=== PATIENT | female | born 1975 | race Caucasian/White ===

== ENCOUNTER 2024-03-23 11:47 | Emergency (ER) | payer BC, MEDICAID, SELFPAY ==
[2024-03-23 11:56] VITALS: BP 138/89; PULSE 90; RESP 16; TEMP 36.6; O2SAT 97
--- NOTE | 2024-03-23 12:05 | USCV_ITS ---
Dayton Astorga Age: 48 Gender: F : 1975 Exam Date: 03/23/2024 12:17 Ordering Phys: Ron Booth MD Technologist: Exam Location: [facility] [place] Indication: lt leg pain PROCEDURES: Venous duplex imaging was performed in only the left lower extremity. The following venous structures were evaluated: common femoral vein, profunda vein, proximal portion of the greater saphenous vein, superficial femoral vein, and the popliteal vein. In addition, the posterior tibial and peroneal trunk were evaluated. FINDINGS: Normal 2-D Doppler and augmentation and compressibility throughout the lower extremity venous structures. Additional imaging through the proximal calf veins also reveals no thrombus. Limited evaluation of the greater saphenous vein is patent with no thrombus. CONCLUSIONS No prior study for comparison. No evidence of left lower extremity DVT. Eloy Arias MD (Electronically Signed) Final Date: 23 Mar 2024 15:15 S
--- NOTE | 2024-03-23 12:05 | XRR_ITS ---
PROCEDURE INFORMATION: Exam: XR Left Tibia and Fibula Exam date and time: 03/23/2024 12:25 PM Age: 48 years old Clinical indication: Lower leg; Left; Prior surgery; Surgery date: 6+ months; Patient HX: Lle pain prev FX TECHNIQUE: Imaging protocol: Radiologic exam of the left tibia and fibula. Views: 2 views. COMPARISON: [place] [id number] 03/23/2024 12:17 PM FINDINGS: Bones/joints: Intact intramedullary montserrat traverses a distal tibial diaphyseal fracture. Intact anchoring screws are seen proximally and distally. There is also a fracture of the distal fibular diaphysis. A small amount of callus is seen at the fibular fracture site. There is overall satisfactory apposition and alignment of both the tibial and fibular fractures. Soft tissues: Normal. XR/XR tibia fibula LT 2V [id number] IMPRESSION: Postoperative findings. Distal tibial and fibular fractures as described above.
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
[2024-03-23 12:22] VITALS: BP 122/91; PULSE 89; O2SAT 98
[2024-03-23 12:26] VITALS: RESP 20; O2SAT 98
[2024-03-23] MEDS: morphine 4 mg/mL SDV 1 mL IM (12:26)
[2024-03-23 12:38] LABS: Basophils # 0.1 10^3/uL (0.0-0.1); Basophils % 0.7 %; Eosinophils # 0.2 10^3/uL (0.0-0.8); Eosinophils % 2.1 %; Hematocrit 40.5 % (36-47); Lymphocytes # 2.8 10^3/uL (0.8-4.8); Lymphocytes % 34.9 %; Mean Corpuscular HGB Conc 30.9 g/dL (30-55); Mean Corpuscular Hemoglobin 26.7 pg (27-33); Mean Corpuscular Volume 86.5 fl (85-98); Mean Platelet Volume 9.1 fL (7.4-10.4); Monocytes # 0.7 10^3/uL (0.2-0.9); Monocytes % 9.1 %; Neutrophils # 4.21 10^3/uL (1.8-7.7); Neutrophils % 52.6 %; Nucleated Red Blood Cells % 0 %; Platelet Count 524 10^3/cmm (157-399); Red Blood Count 4.68 10^6/uL (3.85-5.65); Red Cell Distribution Width 14.2 % (12.1-15.1); White Blood Count 8.02 10^3/uL (3.29-11.43)
[2024-03-23 13:10] VITALS: BP 141/106; PULSE 84; RESP 16; O2SAT 97
--- NOTE | 2024-03-23 13:15 | PC.PHAR ---
PT STATES CAN'T IDENTIFY ANY OF HER MEDICATIONS. HISTORY SHOWS SERTRALINE 50MG DAILY FROM [facility] IN [place]. PT SPECIFICALLY WANTED THE MEDICATIONS SHE DISCHARGED WITH AT [facility] ON 09/26/23. SPOKE WITH [facility] [place], WHO GAVE ME AN EXTENDED LIST OF MEDICATIONS PT SHOULD HAVE BEEN TAKING.
== END 2024-03-23 13:10 | disposition home or self-care (01) ==
PROVIDERS: Emergency Provider Emergency Medicine
DX: M79.605 Pain in left leg (principal)
CPT/HCPCS: 36415; 73590; 85025; 93971; 96372; 99284; J2270